=== PATIENT | female | born 1995 | race Caucasian/White ===

== ENCOUNTER → 2020-06-06 | Outpatient (CLI) | payer BC ==
[~2020-06-06] MED LIST: MOBIC15 MG PO; MOBIC7.5 M1 PO
== END ==
LOC: COL.LAB 09:23
DX: K90.0 Celiac disease (principal)

== ENCOUNTER → 2020-10-14 | Outpatient (CLI) | payer BC | LOC: COL.VAS 13:15 | DX: R06.02 Shortness of breath (principal) ==